=== PATIENT | male | born 1990 | race Caucasian/White ===

== ENCOUNTER 2018-07-18 20:28 | Emergency (ER) | payer SELFPAY ==
[~2018-07-18] VITALS: Ht 180.3 cm; Wt 84.4 kg
[2018-07-18 20:44] VITALS: BP 135/70
[2018-07-18] MEDS ORDERED: DIPHTH,PERTUSS(ACELL),TET TOX 0.5 ML DISP.SYRIN. VAX IM ONE (20:45)
[2018-07-18] MEDS ORDERED: HYDROcodone/APAP 5/325MG 1 TAB TABLET PO ONE (21:00)
[2018-07-18] MEDS ORDERED: HYDR-971 PO (21:08)
--- NOTE | 2018-07-18 21:08 | PHYS DOC ---
Past Medical History Past Medical History: Hypertension Additional Past Medical Histor: PNEUMO, BROKEN T7, T11 Additional Past Surgical Histo: THORACIC SPINE SX Alcohol Use: Occasionally Drug Use: Marijuana Adult General Chief Complaint Chief Complaint: LACERATION/AVULSION HPI HPI Patient is a 28 year old female who presents with pain what tonight and the blade came back and got him in the left knee. Patient has a 2-3 inch laceration that is open with bleeding controlled. Patient rates his pain a 9 out of 10. Patient states he does not remember the last time he has had a tetanus shot. Patient is able to put pressure on the leg. Review of Systems Review of Systems Constitutional: Denies fever or chills [] Eyes: Denies change in visual acuity, redness, or eye pain [] HENT: Denies nasal congestion or sore throat [] Respiratory: Denies cough or shortness of breath [] Cardiovascular: No additional information not addressed in HPI [] GI: Denies abdominal pain, nausea, vomiting, bloody stools or diarrhea [] : Denies dysuria or hematuria [] Musculoskeletal: Denies back pain or Left knee joint pain and laceration [] Integument: Denies rash or skin lesions [] Neurologic: Denies headache, focal weakness or sensory changes [] Endocrine: Denies polyuria or polydipsia [] All other systems were reviewed and found to be within normal limits, except as documented in this note. Current Medications Current Medications Current Medications Medications (Trade) Dose Ordered Sig/Darline Start Time Stop Time Status Last Admin Dose Admin Acetaminophen/ Hydrocodone Bitart (Lortab 5/325) 1 tab 1X ONCE 07/18/18 21:00 07/18/18 21:01 UNV 07/18/18 21:35 1 TAB Diphtheria/ Tetanus/Acell Pertussis (Boostrix) 0.5 ml ONCE ONCE 07/18/18 20:45 07/18/18 20:46 UNV 07/18/18 21:36 0.5 ML Lidocaine/Sodium Bicarbonate (Buffered Lidocaine 1%) 3 ml 1X ONCE 07/18/18 21:30 07/18/18 21:31 UNV 07/18/18 21:30 3 ML Physical Exam Physical Exam Constitutional: Well developed, well nourished, no acute distress, non-toxic appearance. [] HENT: Normocephalic, atraumatic, bilateral external ears normal, oropharynx moist, no oral exudates, nose normal. [] Eyes: PERRLA, EOMI, conjunctiva normal, no discharge. [] Neck: Normal range of motion, no tenderness, supple, no stridor. [] Cardiovascular:Heart rate regular rhythm, no murmur [] Lungs & Thorax: Bilateral breath sounds clear to auscultation [] Abdomen: Bowel sounds normal, soft, no tenderness, no masses, no pulsatile masses. [] Skin: Warm, dry, no erythema, no rash. Left knee open laceration 2-3 inches.[] Back: No tenderness, no CVA tenderness. [] Extremities: No tenderness, no cyanosis, no clubbing, Left knee ROM no intact due to injury, no edema. [] Neurologic: Alert and oriented X 3, normal motor function, normal sensory function, no focal deficits noted. [] Psychologic: Affect normal, judgement normal, mood normal. [] Current Patient Data Vital Signs Vital Signs Date Time Temp Pulse Resp B/P (MAP) Pulse Ox O2 Delivery O2 Flow Rate FiO2 07/18/18 21:35 18 99 Room Air 07/18/18 20:44 97.5 88 135/70 (91) 97.5 EKG EKG [] Radiology/Procedures Radiology/Procedures Left knee[] Course & Med Decision Making Course & Med Decision Making Patient is alert and oriented. Patient came in after chopping with with an ax's evening he sliced his left knee but the blade went chopping wood. Patient has a left knee 2-3 inch laceration is open with bleeding controlled. Patient states he cannot remember the last time he had a tetanus shot. Patient is to receive a Boostrix vaccination. Patient will also receive one [place] for pain. Pedal pulse present. Range of motion is not intact in the left knee due to injury and pain. There are no deformities noted. Wound is cleaned and wrist with normal saline and Betadine. ER PHYSICIAN ATTENDING NOTE: I have personally seen and examined the patient. The patient sustained a laceration on the anterior aspect of his left knee. This is overlying the patella anteriorly. The patient is able to have a straight leg raise without difficulty or weakness. The wound was inspected, there is no evidence of joint capsule violation. X-rays were negative for air in the joint space, or other acute pathology. I agree with the history, physical exam, and plan, as documented by mid-level provider. Dragon Disclaimer Dragon Disclaimer This electronic medical record was generated, in whole or in part, using a voice recognition dictation system. Departure Departure Impression: Primary Impression: Laceration Disposition: 01 HOME, SELF-CARE Condition: STABLE Referrals: NO PCP (PCP) Patient Instructions: Laceration Care, Adult Additional Instructions: PRIMARY care doctor take medications as prescribed use ibuprofen for further pain management and ice. Return to the ED in 7 days for suture removal. Scripts Hydrocodone/Apap 5-325 (NORCO 5-325 TABLET) 1 Each Tablet 1 TAB PO PRN Q6HRS PRN for PAIN, #5 TAB 0 Refills Prov: LEONEL JURADO APRN 07/18/18 LEONEL JURADO APRN Jul 18, 2018 21:08 AJ PARTIDA MD Jul 18, 2018 22:21
[2018-07-18] MEDS ORDERED: LIDOCAINE WITH 8.4% SOD BICARB 3 ML DISP.SYRIN. INJ ONE (21:30)
--- NOTE | 2018-07-18 21:54 | RAD ---
Indication:Laceration on anterior knee TECHNIQUE: 3 views of the left knee COMPARISON:None FINDINGS: No acute fracture or dislocation. No suprapatellar effusion. IMPRESSION: No acute findings. Electronically signed by: John Rivera DO (07/18/2018 9:51 PM) [facility]
== END 2018-07-18 22:40 | disposition home or self-care (01) ==
LOC: ER 20:28
DX: S81.012A Laceration without foreign body, left knee, initial encounter (principal); I10 Essential (primary) hypertension; W26.8XXA Contact with other sharp object(s), not elsewhere classified, initial encounter; Y93.89 Activity, other specified; Y92.89 Other specified places as the place of occurrence of the external cause; Y99.8 Other external cause status
CPT/HCPCS: 73562; 90471; 90715; 96372; 99284

== ENCOUNTER 2020-02-10 00:28 | Emergency (ER) | payer SELFPAY ==
[~2020-02-10] VITALS: Ht 180.3 cm; Wt 78.6 kg
[~2020-02-10 00:28] MED LIST: HYDR-3164 PO
[2020-02-10 00:42] VITALS: BP 150/87
--- NOTE | 2020-02-10 00:48 | PHYS DOC ---
Past Medical History Past Medical History: Hypertension Additional Past Medical Histor: PNEUMO, BROKEN T7, T11 Additional Past Surgical Histo: THORACIC SPINE SX Smoking Status: Former Smoker Alcohol Use: Occasionally Drug Use: Marijuana Adult General Chief Complaint Chief Complaint: HALLUCINATIONS AUDIBLE/VISUAL HPI HPI 29-year-old male presents to the emergency department via EMS for hallucinations. Patient states he awoke from sleep thought he saw someone in his house with the mask on he turned on the lights and there was nothing there. He denies any auditory or visual hallucinations at this time. Patient denies any suicidal or homicidal ideation. He denies any history of psychosis or hallucinations in the past. Nothing makes his symptoms worse, nothing makes his symptoms better again patient does not have current hallucinations. Review of Systems Review of Systems Constitutional: Denies fever or chills [] Respiratory: Denies cough or shortness of breath [] Cardiovascular: No additional information not addressed in HPI [] GI: Denies abdominal pain, nausea, vomiting, bloody stools or diarrhea [] Musculoskeletal: Denies back pain or joint pain [] Neurologic: Denies headache, focal weakness or sensory changes [] All other systems were reviewed and found to be within normal limits, except as documented in this note. Allergies Allergies Allergies Coded Allergies Type Severity Reaction Last Updated Verified No Known Drug Allergies 02/10/20 No Physical Exam Physical Exam Constitutional: Well developed, well nourished, no acute distress, non-toxic appearance. [] HENT: Normocephalic, atraumatic, bilateral external ears normal, oropharynx moist, no oral exudates, nose normal. [] Eyes: PERRLA, EOMI, conjunctiva normal, no discharge. [] Cardiovascular:Heart rate regular rhythm, no murmur [] Lungs & Thorax: Bilateral breath sounds clear to auscultation [] Skin: Warm, dry, no erythema, no rash. [] Neurologic: Alert and oriented X 3, no focal deficits noted, no visual or auditory hallucinations appreciated [] Psychologic: Affect normal, judgement normal, mood normal. [] EKG EKG [] Radiology/Procedures Radiology/Procedures [] Course & Med Decision Making Course & Med Decision Making Pertinent Labs and Imaging studies reviewed. (See chart for details) []29-year-old male presents to the emergency department via EMS for hallucinations. Patient states he awoke from sleep thought he saw someone in his house with the mask on he turned on the lights and there was nothing there. He denies any auditory or visual hallucinations at this time. Patient denies any suicidal or homicidal ideation. He denies any history of psychosis or hallucinations in the past. Nothing makes his symptoms worse, nothing makes his symptoms better again patient does not have current hallucinations. Dragon Disclaimer Dragon Disclaimer This electronic medical record was generated, in whole or in part, using a voice recognition dictation system. Departure Departure Impression: Primary Impression: Hallucination Disposition: 01 HOME, SELF-CARE Condition: IMPROVED Referrals: NO PCP (PCP) Patient Instructions: Hallucinations and Delusions Additional Instructions: Recommend discharge home No auditory or visual hallucinations identified Recommend follow up with PCP as needed JODIE VILLALPANDO MD Feb 10, 2020 00:48
== END 2020-02-10 00:52 | disposition home or self-care (01) ==
LOC: ER 00:28
DX: R44.3 Hallucinations, unspecified (principal); I10 Essential (primary) hypertension; F12.90 Cannabis use, unspecified, uncomplicated; Z98.890 Other specified postprocedural states; Z87.891 Personal history of nicotine dependence
CPT/HCPCS: 99283